=== PATIENT | female | born 1990 | race Caucasian/White ===

== ENCOUNTER 2016-07-16 18:16 | Emergency (ER) | payer OTHER ==
[~2016-07-16] VITALS: Ht 154.9 cm; Wt 80.0 kg
[2016-07-16 18:33] VITALS: Ht 154.9 cm; Wt 80.0 kg
--- NOTE | 2016-07-16 19:39 | ERD ---
ER Documentation Chief Complaint Date/Time DATE: 07/16/16 TIME: 19:36 Chief Complaint IUD REMOVED SATURDAY WITH VAG BLEEDING.SOAKED 4 PADS TODAY HPI 26-year-old female presents here in emergency department for complaints of vaginal bleeding started today. Patient's soaked 4 pads today. Patient does complain of vaginal bleeding, pelvic cramping, 4/10 scale, accompanying the vaginal bleeding. Patient had IUD removed 2 days ago. Patient was sent here by gynecology specialist for further evaluation. Patient denies any flank pain. Patient denies any fever or chills. Patient denies being . She did not take any medications up with symptoms. Patient denies any dizziness. ROS All systems reviewed and are negative except as per history of present illness. Medications Home Meds Active Scripts Tramadol HCl (Tramadol HCl) 50 Mg Tablet, 50 MG PO Q6 Y for SEVERE PAIN LEVEL 7- 10, #20 TAB Prov:SHANIQUA RETANA [employer] 07/16/16 Ferrous Sulfate* (Ferrous Sulfate*) 325 Mg Tabec, 325 MG PO BID, #60 TAB Prov:SHANIQUA RETANA [employer] 07/16/16 Ibuprofen* (Motrin*) 600 Mg Tab, 600 MG PO Q6H Y for PAIN AND OR ELEVATED TEMP, #30 TAB Prov:SHANIQUA RETANA [employer] 07/16/16 Reported Medications [none] Unknown Strength No Conflict Check 07/16/16 Allergies Allergies: Coded Allergies: No Known Allergy (Unverified , 07/16/16) PMhx/Soc Medical and Surgical Hx: pt denies Medical Hx, pt denies Surgical Hx History of Surgery: No Anesthesia Reaction: No Hx Neurological Disorder: No Hx Respiratory Disorders: No Hx Cardiac Disorders: No Hx Psychiatric Problems: No Hx Miscellaneous Medical Probl: No Hx Alcohol Use: Yes Hx Substance Use: No Hx Tobacco Use: No FmHx Family History: No coronary disease, No diabetes, No other Physical Exam Vitals Vital Signs Date Time Temp Pulse Resp B/P Pulse Ox O2 Delivery O2 Flow Rate FiO2 07/16/16 18:33 99.2 100 20 140/82 100 Physical Exam GENERAL: The patient is well developed and appropriate for usual state of health, in no apparent distress. CHEST: Clear to auscultation bilaterally. There are no rales, wheezes or rhonchi. HEART: Regular rate and rhythm. No murmurs, clicks, rubs or gallops. No S3 or S4. ABDOMEN: Soft, nontender and nondistended. Good bowel sounds. No rebound or guarding. No gross peritonitis. No gross organomegaly or masses. No Woods sign or McBurney point tenderness. BACK: No midline or flank tenderness. EXTREMITIES: Equal pulses bilaterally. There is no peripheral clubbing, cyanosis or edema. No focal swelling or erythema. Full range of motion. Grossly neurovascularly intact. NEURO: Alert and oriented. Cranial nerves 2-12 intact. Motor strength in all 4 extremities with 5/5 strength. Sensation grossly intact. Normal speech and gait. SKIN: There is no apparent rash or petechia. The skin is warm and dry. HEMATOLOGIC AND LYMPHATIC: There is no evidence of excessive bruising or lymphedema. No gross cervical, axillary, or inguinal lymphadenopathy. Result Diagram: 07/16/161944 Results 24 hrs Laboratory Tests Test 07/16/16 19:45 Basophils # 0.010^3/ul Basophils % 0.3% Beta HCG, Quantitative < 2.4mIU/ml Eosinophils # 0.010^3/ul Eosinophils % 0.5% Hematocrit 37.5% Hemoglobin 13.2g/dl Lymphocytes # 2.210^3/ul Lymphocytes % 26.1% Mean Corpuscular Hemoglobin 33.3pg Mean Corpuscular Hemoglobin Concent 35.1g/dl Mean Corpuscular Volume 94.8fl Mean Platelet Volume 7.6fl Monocytes # 0.710^3/ul Monocytes % 8.6% Neutrophils # 5.510^3/ul Neutrophils % 64.5% Nucleated Red Blood Cells # 0.010^3/ul Nucleated Red Blood Cells % 0.0/100WBC Platelet Count 04992^3/UL Red Blood Count 3.9610^6/ul Red Cell Distribution Width 11.8% Urine Bacteria FEW Urine Bilirubin NEGATIVE Urine Clarity CLEAR Urine Color LT. YELLOW Urine Glucose NEGATIVE% Urine Hemoglobin 3+ Urine Ketones NEGATIVE Urine Leukocyte Esterase NEGATIVE Urine Microscopic RBC >50/HPF Urine Microscopic WBC 0-2/HPF Urine Nitrite NEGATIVE Urine Specific [place] 1.015 Urine Squamous Epithelial Cells MODERATE Urine Total Protein NEGATIVE Urine Urobilinogen 0.2 E.U./dL Urine pH 7.5 White Blood Count 8.510^3/ul PROCEDURE: US Non-OB Pelvis. CLINICAL INDICATION: Vaginal bleeding. TECHNIQUE: Multiple sonographic images of the pelvis were obtained utilizing a transabdominal and endovaginal technique. The images were reviewed on a PACS workstation. COMPARISON: None. FINDINGS: The uterus is visualized and measures 4.5 cm in transverse dimension. The endometrial echo complex is normal and measures 11 mm. The right ovary measures 3.4 x 2.0 x 3.4 cm. The left ovary measures 4.8 x 3.0 x 4.7 cm. A 2.6 cm left ovarian cyst contains minimal internal debris. Blood flow is demonstrated to both ovaries. No adnexal masses are noted. There is no evidence of free fluid. IMPRESSION: 1. Normal appearance of uterus and right ovary. 2. 2.6 cm left ovarian cyst containing minimal internal debris, probably a hemorrhagic cyst. RPTAT: HTAR .Ricardo Bautista MD, MD Date Time Electronically viewed and signed by .Ricardo Bautista MD, MD on 07/16/2016 20:19 .R/ CC: SHANIQUA RETANA [employer] Procedures/MDM Medical Decision Making: Patients vaginal bleeding is most likely consistent of her menstruation, possible dysfunctional uterine bleeding, warm and related, kidney also from the hemorrhagic cyst. No noted. Patient does not show any evidence of hypovolemic shock. Patients hemoglobin and hematocrit is stable. There is low suspicion for ectopic . MICHAEL results show white cyst, possible hemorrhagic BetaHCG Quantitative is low consistent with negative There is no signs of symptoms of dehydration. There is low suspicion for sepsis. Patient appears well and is hemodynamically stable. No suspicion for ovarian torsion. Disposition: Home. Condition: Stable Disposition: Ibuprofen, Ferrous sulfate, tramadol, colace Instructions: Patient is advised to do bed rest, avoid heavy lifting, and avoid having sex until cleared by gynecology doctor. Patient is advised to follow up with psychologist specialist in 1-2 days for reevaluation of symptoms. Patient is advised that is symptoms are worst, severe bleeding, dizziness, severe abdominal pain, fever, worst signs and symptoms to return to the emergency department immediately. Departure Diagnosis: Primary Impression: Vaginal bleeding Additional Impression: Ovarian cyst Laterality: left Qualified Code: N83.202 - Cyst of left ovary Condition: Stable Patient Instructions: Dysfunctional Uterine Bleeding, Ovarian Cyst Additional Instructions: Patient is advised to do bed rest, avoid heavy lifting, and avoid having sex until cleared by gynecology doctor. Patient is advised to follow up with psychologist specialist in 1-2 days for reevaluation of symptoms. Patient is advised that is symptoms are worst, severe bleeding, dizziness, severe abdominal pain, fever, worst signs and symptoms to return to the emergency department immediately. SHANIQUA RETANA NP Jul 16, 2016 19:39
[2016-07-16 19:57] LABS: ADD UMIC YES; URINE BILIRUBIN (Dip) NEGATIVE (NEGATIVE); URINE BLOOD (Dip) 3+ (NEGATIVE); URINE COLOR LT. YELLOW (YELLOW); URINE GLUCOSE (Dip) NEGATIVE (NEGATIVE); URINE KETONES (Dip) NEGATIVE (NEGATIVE); URINE LEUKOCYTE ESTERASE (Dip) NEGATIVE (NEGATIVE); URINE NITRITE (Dip) NEGATIVE (NEGATIVE); URINE TOTAL PROTEIN (Dip) NEGATIVE (NEGATIVE); URINE UROBILINOGEN (Dip) 0.2 E.U./dL (0.1-1.0)
[2016-07-16 20:02] LABS: BASOPHILS % 0.3 % (0.0-2.0); EOSINOPHILS % 0.5 % (0.0-7.0); HEMATOCRIT 37.5 % (37.0-47.0); HEMOGLOBIN 13.2 g/dl (12.0-16.0); LYMPHOCYTES # 2.2 10^3/ul (0.8-2.9); LYMPHOCYTES % 26.1 % (15.0-51.0); MEAN CORPUSCULAR HEMOGLOBIN 33.3 pg (29.0-33.0); MEAN CORPUSCULAR HGB CONC 35.1 g/dl (32.0-37.0); MEAN CORPUSCULAR VOLUME 94.8 fl (82.0-101.0); MEAN PLATELET VOLUME 7.6 fl (7.4-10.4); MONOCYTE # 0.7 10^3/ul (0.3-0.9); MONOCYTES % 8.6 % (0.0-11.0); NEUTROPHIL # 5.5 10^3/ul (1.6-7.5); NEUTROPHILS % 64.5 % (39.0-77.0); PLATELET COUNT 171 10^3/UL (140-440); RED BLOOD COUNT 3.96 10^6/ul (4.20-5.40); RED CELL DISTRIBUTION WIDTH 11.8 % (11.5-14.5); UNCORRECTED WBC 8.5 10^3/ul (4.8-10.8); WHITE BLOOD COUNT 8.5 10^3/ul (4.8-10.8)
[2016-07-16 20:05] LABS: CONDITION 1
--- NOTE | 2016-07-16 20:19 | RADRPT ---
PROCEDURE: US Non-OB Pelvis. CLINICAL INDICATION: Vaginal bleeding. TECHNIQUE: Multiple sonographic images of the pelvis were obtained utilizing a transabdominal and endovaginal technique. The images were reviewed on a PACS workstation. COMPARISON: None. FINDINGS: The uterus is visualized and measures 4.5 cm in transverse dimension. The endometrial echo complex i s normal and measures 11 mm. The right ovary measures 3.4 x 2.0 x 3.4 cm. The left ovary measures 4.8 x 3.0 x 4.7 cm. A 2.6 cm le ft ovarian cyst contains minimal internal debris. Blood flow is demonstrated to both ovaries. No adnexal masses are noted. There is no evidence of free fluid. IMPRESSION: 1. Normal appearance of uterus and right ovary. 2. 2.6 cm left ovarian cyst containing minimal internal debris, probably a hemorrhagic cyst. RPTAT: HTAR .Ricardo Buatista MD, MD Date Time Electronically viewed and signed by .Ricardo Bautista MD, on 07/16/2016 20:19 .R/
[2016-07-16 20:36] LABS: URINE RBCS >50 /HPF (0)
[2016-07-16 20:37] LABS: BACTERIA,URINE FEW; SQUAMOUS EPITHELIAL CELL,UR MODERATE
[2016-07-16] MEDS ORDERED: ULT50 PO (20:50)
[2016-07-16] MEDS ORDERED: IBUP-1542 PO (20:50)
[2016-07-16] MEDS ORDERED: FER325 PO (20:50)
[2016-07-16] MEDS ORDERED: DOCU-144 PO (20:51)
[2016-07-16 21:31] VITALS: BP 136/80; PULSE 85; RESP 18
== END 2016-07-16 21:33 | disposition home or self-care (01) ==
LOC: FTE 18:16
DX: N93.9 Abnormal uterine and vaginal bleeding, unspecified (principal); N83.202 Unspecified ovarian cyst, left side; R10.2 Pelvic and perineal pain
CPT/HCPCS: 36415; 76830; 76856; 81001; 81003; 84702; 85025; Z7502